=== PATIENT | male | born 1965 | race Caucasian/White ===

== ENCOUNTER → 2019-11-08 | Day surgery (SDC) | payer OTHER ==
[~2019-11-08] MED LIST: CALCIUM ACETAT667 MG PO; CARVEDILOL12.5 MG PO; FLEXERIL PO; LIPITOR40 MG PO; LYRICA150 MG PO; NEXIUM40 MG PO; NORCO 5-325 TA1 EAC1 PO; SINGULAIR 10 MG10 M1 PO; VITAMIN D3 PO
[2019-11-08 08:05] LABS: HEMATOCRIT 42.3 % (42.0-52.0); MCHC 33.1 g/dL (28.0-37.0); MCV 90.7 fL (80.0-100.0); MPV 9.7 fl. (7.2-11.1); RBC 4.66 mil/uL (4.50-6.00); RDW-CV 18.5 % (10.5-14.5); WBC 8.5 thou/uL (4.0-11.0)
[2019-11-08 08:12] LABS: CALCIUM 9.1 mg/dL (8.5-10.1); CREATININE 4.9 mg/dL (0.6-1.3); POTASSIUM 3.6 mmol/L (3.5-5.1)
--- NOTE | 2019-11-08 10:35 | EKG ---
[place] [address] ELECTROCARDIOGRAM REPORT Name: Zulma PURVIS Room: [facility]#: [id number] Admission: 11/08/19 Attend Phys: Ryne Venegas Discharge: Date of : 61 Date of Service: 11/08/19803 Report #: [id number] THIS REPORT FOR: //name// [facility] Test Date: 2019-11-08 Test Time: 08:04:15 Pat Name: Zulma PURVIS Department: Room: Gender: Content Manager: : 1965 Requested By: Ryne Prather Order Number: [id number] Ayala MD: Mahamed Reyes Measurements Intervals [place] Rate: 74 P: 9 WV: 179 QRS: -15 QRSD: 87 T: 16 QT: 382 QTc: 424 Interpretive Statements Sinus rhythm Borderline left axis deviation No previous ECG available for comparison Electronically Signed On 11-08-2019 10:33:17 CDT by Mahamed Reyes [email or web address] <ELECTRONICALLY SIGNED> By: Mahamed Reyes MD, LOCATED WITHIN [facility] 11/08/19 1033 3 3 Mahamed Reyes MD, FACC /EPI
--- NOTE | 2019-11-15 13:17 | OP ---
[facility] [address] [place] [address] OPERATIVE REPORT Name: HYUNZulma ROLANDO Room: [facility].#: [id number] Admission: 11/08/19 Attend Phys: Ryne Prather Discharge: Date of : 61 Report #: [id number] THIS REPORT FOR: //name// cc: MICHAEL JUNG MD, BRADLEY W. MD ~ THIS REPORT FOR: //name// CC: MICHAEL Prather DATE OF SERVICE: 11/08/2019 PREOPERATIVE DIAGNOSIS: End-stage renal disease. POSTOPERATIVE DIAGNOSIS: End-stage renal disease. OPERATION: 1. Laparoscopic placement of tunneled intraperitoneal catheter. 2. Laparoscopic omentopexy. SURGEON: Ryne Prather MD ANESTHESIA: General. ESTIMATED BLOOD LOSS: Minimal. SPECIMEN: None. DESCRIPTION OF PROCEDURE: After informed consent was obtained, the patient was brought to the operating room and placed supine. SCDs were placed and working, preoperative antibiotics were administered, general anesthesia was induced. The abdomen was prepped and draped in the usual sterile fashion. A 5 mm incision was made in the left upper quadrant. A 5 mm trocar was placed under direct vision. Pneumoperitoneum was established. A left-sided 5 mm trocar was placed. An 8 mm trocar was placed above the umbilicus. A 62 cm coiled catheter was placed. It was then pulled back, so that the internal cuff was in the left rectus sheath. It was then tunneled to the left upper quadrant of the abdomen. Laparoscopically, I inserted a 2-0 Vicryl suture in the right upper quadrant. This was used to pass through the omentum and then back out through the skin, performing the omentopexy. The CO2 was then released. The catheter flushed easily with 750 mL of heparinized saline. It drained easily with 250 mL of heparinized saline allowed to run out. The ports were removed. The skin was closed with 4-[place] [address] OPERATIVE REPORT Name: Zulma PURVIS Room: [facility]#: [id number] Admission: 11/08/19 Attend Phys: Ryne Prather Discharge: Date of : 61 Report #: [id number] Incisions were sealed with Steri-Strips and sterile gauze. COMPLICATIONS: None. DISPOSITION: The patient was taken to recovery in satisfactory condition. <ELECTRONICALLY SIGNED> By: Ryne Prather MD 11/15/19 1317 1211 1221Ryne Prather MD /nt
== END | disposition home or self-care (01) ==
LOC: M.SUR 07:05
PROVIDERS: ATTEND Surgery
DX: I12.0 Hypertensive chronic kidney disease with stage 5 chronic kidney disease or end stage renal disease (principal); N18.6 End stage renal disease; Z79.899 Other long term (current) drug therapy; Z98.890 Other specified postprocedural states; Z88.0 Allergy status to penicillin